=== PATIENT | female | born 1955 | race Caucasian/White ===

== ENCOUNTER → 2019-11-23 21:04 | Outpatient (CLI) | payer MEDICARE | END | disposition home or self-care (01) | LOC: D.LABREF 21:04 | PROVIDERS: ATTEND Orthopaedic Surgery | DX: M16.12 Unilateral primary osteoarthritis, left hip (principal); Z96.642 Presence of left artificial hip joint ==

== ENCOUNTER 2019-11-29 15:27 | Inpatient (IN) | payer MEDICARE ==
[~2019-11-29] VITALS: Ht 165.1 cm; Wt 97.7 kg
[2019-12-07] MEDS ORDERED: TOPROL XL25 MG PO (08:52)
[2019-12-07] MEDS ORDERED: CYMBALTA30 MG PO (08:52)
[2019-12-07] MEDS ORDERED: AMBIEN10 MG PO (08:52)
[2019-12-07] MEDS ORDERED: BUSPAR5 MG PO (08:52)
[2019-12-07] MEDS ORDERED: PROTONIX40 MG PO (08:52)
[2019-12-07] MEDS ORDERED: VASOTEC10 MG PO (08:53)
[2019-12-07] MEDS ORDERED: VITAMIN D2 PO (08:53)
[2019-12-07] MEDS ORDERED: FLUTICASONE PRO16 GM NASAL (08:54)
[2019-12-07 10:06] LABS: HEMATOCRIT 38.2 % (36.0-48.0); HEMOGLOBIN 12.7 g/dL (12-16); MCHC 33.2 g/dL (31.0-37.0); MCV 90.1 fL (80.0-100.0); MEAN PLATELET VOLUME 9.6 fL (7.4-10.4); PLATELET COUNT 415 10x3/uL (130-400); RBC 4.24 10x6/uL (4.00-5.40); RDW 13.8 % (11.5-14.5); WBC 12.2 10x3/uL (4.8-10.8)
[2019-12-07 10:10] LABS: ANION GAP 9.7 mmol/L (8-16); CALCIUM 8.8 mg/dL (8.5-10.1); CARBON DIOXIDE 30.3 mmol/L (21.0-32.0); CREATININE - SERUM 1.2 mg/dL (0.6-1.3)
[2019-12-07 10:16] LABS: INR 0.95 (0.85-1.17); PROTIME 12.7 SECONDS (11.6-15.0)
[2019-12-07 10:17] LABS: APTT 31.7 SECONDS (22.8-39.4)
[2019-12-07 11:28] LABS: BILIRUBIN NEGATIVE (NEGATIVE); EPITHELIAL CELLS 0-5 /hpf (0-5); GLUCOSE 50 mg/dL (NEGATIVE); KETONE NEGATIVE (NEGATIVE); NITRITE NEGATIVE (NEGATIVE); RED CELLS - URINE NONE SEEN /hpf (0-5); SPECIFIC GRAVITY 1.015 (1.005-1.020); WHITE CELLS - URINE 0-5 /hpf (NEGATIVE)
[2019-12-07 11:29] LABS: BACTERIA FEW /hpf (NEGATIVE)
[2019-12-07 11:53] LABS: ANISOCYTOSIS OCC; EOSINOPHILS 2 % (0-7); LYMPHOCYTES 19 % (15-50); MONOCYTES 14 % (2-11); NEUTROPHILS 65 % (40-80); PLATELET ESTIMATE INCREASED; ROULEAUX OCC
[2019-12-13] VITALS (13 sets, daily range): BP systolic 100–153; BP diastolic 53–116; Ht 165.1 cm; Wt 97.7 kg
[2019-12-13] MEDS ORDERED: CIPRO500 MG PO (06:16)
--- NOTE | 2019-12-13 06:31 | NUR ---
CALLED DR MORRISSEY TO SEE IF REPEAT UA NEEDED. STATES NO. ALSO NOTIFIED SURGERY OF LATEX ALLERGY.
--- NOTE | 2019-12-13 07:38 | NUR ---
THROUGH TRAFFIC KEPT TO A MINIMUM. HIBACLENS AND ALCOHOL USED TO WAS LEFT HIP AND ENTIRE LEG BEFORE PREPPING. STERILE GOWNED AND GLOVED BEFORE PREPPING WITH CHLORAPREP.
--- NOTE | 2019-12-13 09:45 | NUR ---
RECEIVED TO ROOM 1208 VIA BED FROM PACU. A/O X3. SKIN IS INTACT WITHOUT REDNESS EXCEPT INCISION TO LEFT HIP WHICH HAS A DRY INTACT DRESSING IN PLACE. VSS. PATIENT IS IN AFIB WITH HISTORY OF SAME. WILL GET TELEMETRY IN PLACE. SON AT BEDSIDE. ALL QUESTIONS ANSWERED. INSTRUCTED IN USE OF IS WITH RETURN DEMONSTRATION. DENIES NEEDS.
--- NOTE | 2019-12-13 15:08 | OP ---
PATIENT NAME: ANITHA BARROW MEDICAL RECORD: [id number] :55 LOCATION:D. D.1208 ADMISSION DATE:12/13/19 SURGEON: MICHAEL MORRISSEY DO DATE OF OPERATION: 12/13/2019 PROCEDURE PERFORMED: Left total hip arthroplasty. PREOPERATIVE DIAGNOSIS: Left hip osteoarthritis. POSTOPERATIVE DIAGNOSIS: Left hip osteoarthritis. INDICATIONS: Ms. Barrow is a 64-year-old female who presented to my office having tried all manner of nonoperative treatment for her hip pain, both have been hurting her, but the left one was worse than the right. She wanted something done surgically. I informed her that we could do a total hip, but she would be a risk for infection, bleeding, damage to nerves and vessels, need for further surgery, but it would help relieve her pain. She was okay with all that and was aware that she was at risk for blood clots, fracture, failure of implants, bleeding, damage to the lateral femoral cutaneous nerve, femoral nerve and she signed the consent. SURGEON: Michael Morrissey DO DESCRIPTION OF PROCEDURE: The patient was taken to the operative suite, laid in supine position, given general anesthetic and intubated. She was given 2 grams of Ancef and 80 mg of gentamicin preoperatively. She was then placed on the Sterrett table. The left lower extremity was prepped and draped in sterile fashion. Timeout was performed, everyone was in agreement with the correct site, patient and procedure. We then began by making an incision over the tensor fascia maral muscle belly, though a careful dissection was made down to it. The fascia was incised and the fascia was taken anteriorly, muscle belly posteriorly, opening up the rectus interval. The fascia was then opened. Rectus was taken medially, the tensor fascia maral laterally. I then had encountered the ascending branch of lateral femoral circumflex, tied it off and coagulated with Aquamantys and cut it. I then exposed the capsule and then opened up the capsule, put two Hohmanns around the femoral neck and made a cut. Once the femoral neck was cut, I removed the head and then she had large osteophytes off the acetabulum. These were removed as well as the labrum and the pulvinar. I then began reaming, reamed up to a 52, put in the cup and the liner and then exposed the femur. Once the femur was exposed, I used a canal finder [employer] cutter and then broached from the 4 up to 11 and trialed the -3 neck. This fit very well, had equal lengths to the right side on x-ray and then we decided to go with that. We then removed the trials and then put in the actual implant after irrigating. A #11 stem was impacted in with a -3 neck dual mobility head. This was reduced and x-rays were taken. There were no fractures in the femur. The stem was in good position and they were equal lengths seen on the left and the right off the lesser trochanter. The site was then irrigated with 10% povidone iodine and 500 mL of normal saline solution and set for 3 minutes, this was then irrigated out with a liter of normal saline. Edgar Paulino, certified surgical special education teaching assistant assisted at this point as well as Jaspreet Pierre, special education teaching assistant student. I then put in the Carlo powder, and vancomycin and tobramycin powder, and then closed the tensor fascia maral with #1 Vicryl in a [id number]-qm-rtoov and then a running locking stitch and then closed the skin with 2-0 Vicryl inverted interrupted fashion, 4-0 Monocryl ran on the skin and Prineo glue placed on the skin. She was then awakened and taken to recovery in stable condition. Blood loss was OPERATIVE REPORT [id number] ANITHA BARROW approximately 250 mL. COMPLICATIONS: None. TRANSINT:[id number] Voice Confirmation ID: [id number] DOCUMENT ID: [id number] MICHAEL MORRISSEY DO at 1508 CC: [id number] DICTATION DATE: 12/13/19827 ACCOUNTANT CERTIFIED PUBLIC: 12/13/19 1423 ADM IN [facility] [address] [facility], [facility] [id number]
--- NOTE | 2019-12-13 15:31 | NUR ---
ATE ALMOST ALL OF LUNCH. UP TO BR WITH 2 PERSON MIN-MOD ASSIST. VOIDED CLEAR YELLOW URINE WITHOUT DIFFICULTY. REPOSITIONED IN BED FOR COMFORT.
--- NOTE | 2019-12-13 19:00 | NUR ---
PATIENT RESTING IN BED WITH NO S/S OF DISTRESS. PATIENT DENIES NEEDS AT THIS TIME. BED IN LOWEST POSITION AND CALL LIGHT WITHIN REACH. ENCOURAGED THE PATIENT TO CALL IF SHE HAS NEEDS. WILL CONTINUE TO MONITOR.
--- NOTE | 2019-12-13 19:00 | NUR ---
ATE ALMOST ALL OF SUPPER. DENIES NEEDS. NO CHANGES NOTED.
--- NOTE | 2019-12-13 20:38 | NUR ---
ASSISTED PATIENT TO AND FROM RESTROOM PER HER REQUEST. ADMINISTERED MEDS PER ORDERS. PATIENT DENIES OTHER NEEDS. ENCOURAGED TO CALL. WILL CONTINUE TO MONITOR.
[2019-12-14 00:12] VITALS: BP 112/49
--- NOTE | 2019-12-14 03:14 | NUR ---
ASSISTED PATIENT TO AND FROM RESTROOM
[2019-12-14 03:31] VITALS: BP 104/54
--- NOTE | 2019-12-14 07:10 | NUR ---
PT ASSESSMENT DONE, NO S/S OF DISTRESS NOTED, HELPED PT UP TO BATHROOM, ONE PERSON ASSIST WITH WALKER, DENIES NEEDS AT THIS TIME, NO IV, BREATHING EVEN UNLABORED, A&O X3, PEDAL PULSES PALPABLE, LUNGS CTA, BED LOWEST POSITION, CALL LIGHT IN REACH, IS COMPLETED, WILL CONTINUE TO MONITOR
--- NOTE | 2019-12-14 07:12 | NUR ---
UA COLLECTED AND SENT TO LAB
[2019-12-14 07:20] LABS: BASOPHILS 0.2 % (0-2); EOSINOPHILS 0.9 % (0-7); HEMATOCRIT 31.8 % (36.0-48.0); HEMOGLOBIN 10.1 g/dL (12-16); IMMATURE GRANULOCYTES 0.2 % (0-5); LYMPHOCYTES 17.1 % (15-50); MCH 28.9 pg (26.0-34.0); MCHC 31.8 g/dL (31.0-37.0); MCV 90.9 fL (80.0-100.0); MONOCYTES 7.7 % (2-11); NEUTROPHILS 73.9 % (40-80); PLATELET COUNT 369 10x3/uL (130-400); RDW 14.4 % (11.5-14.5); WBC 11.1 10x3/uL (4.8-10.8)
[2019-12-14 07:29] LABS: ANION GAP 13.6 mmol/L (8-16); CALCIUM 8.4 mg/dL (8.5-10.1); CARBON DIOXIDE 24.8 mmol/L (21.0-32.0); CREATININE - SERUM 1.9 mg/dL (0.6-1.3); MAGNESIUM - SERUM 1.9 mg/dL (1.8-2.4); POTASSIUM - SERUM 4.4 mmol/L (3.5-5.1)
[2019-12-14 08:03] VITALS: BP 104/50
--- NOTE | 2019-12-14 09:06 | NUR ---
PT HELPED UP TO BATHROOM, ONE PERSON ASSIST, WITH WALKER, COMPLAINING OF MORE PAIN IN HIP TODAY, PLACED ICE PACK ON HIP
[2019-12-14 09:44] LABS: BILIRUBIN NEGATIVE (NEGATIVE); GLUCOSE 250 mg/dL (NEGATIVE); KETONE NEGATIVE (NEGATIVE); NITRITE NEGATIVE (NEGATIVE); RED CELLS - URINE RARE /hpf (0-5); SPECIFIC GRAVITY 1.015 (1.005-1.020); UROBILINOGEN NORMAL (NORMAL); WHITE CELLS - URINE 0-5 /hpf (NEGATIVE)
--- NOTE | 2019-12-14 09:50 | NUR ---
HELP PT BACK TO BED FROM CHAIR
--- NOTE | 2019-12-14 10:37 | NUR ---
Rehab Note- Acute Inpatient Rehab prescreen order received. The patient is [facility] insurance will require a PreAuth prior to an acute rehab stay. She is POD#1 and has a pending PT & OT Eval that will be needed for PreAuth process. Will continue to follow at this time. Thank you for this referral! Ana Lombardi RN Clinical Liaison, [facility] Rehab
--- NOTE | 2019-12-14 10:43 | MORECARE ---
CASE MANAGEMENT DISCHARGE SUMMARY PATIENT: ANITHA BARROW UNIT: [id number] ADM DATE: 12/13/19 AGE: 64 : 55 SEX: F ROOM/BED: D.1208 AUTHOR: GABE MURRY PHYSICIAN: REFERRING PHYSICIAN: MARQUIS MORRISSEY DO DATE OF SERVICE: 12/14/19 Discharge Plan Patient Name: ANITHA BARROW Facility: [facility]:[place] : 1955 Planned Disposition: Inpatient Rehab Anticipated Discharge Date: Discharge Date: Expected LOS: Initial Reviewer: [email or web address] Initial Review Date: 12/13/2019 Generated: 12/14/19 11:43 am DCP- Discharge Planning Updated by [email or web address]: Jessica Montanez on 12/14/19 9:[address] Patient Name: ANITHA BARROW Admission Status: Elective Accout number: [id number] Admission Date: 12-13-2019 : 1955 Admission Diagnosis: Attending: MARQUIS MORRISSEY Current LOS: 1 Anticipated DC Date: Planned Disposition: Inpatient Rehab Primary Insurance: [facility] MEDICARE SOLUTIONS Discharge Planning Comments: CM met with patient to complete initial dc planning assessment. CM educated patient on the CM role and verbal consent given by patient to complete assessment. Patient lives at home with his her youngest son who will be her route driver coin machines home. At discharge patient would like to go to inpatient rehab at [facility] and feels this is a safe discharge. CM discussed availability of home health, rehab services, and medical equipment. She will need a walker and BSC. She stated that someone called her and will deliver it to her at the hospital. [facility] is for Inpatient rehab and her second choice is [facility] and rehab. IMM also served and explained. She has a managed medicare and will need auth for inpatient rehab. Patient denied known discharge needs at this time. CM will continue to follow and will assist as needed with dc plans/needs. Deckhand Sponge Boat: Jessica Montanez DCPIA - Discharge Planning Initial Assessment Updated by [email or web address]: Jessica Montanez on 12/14/19 10:23 am * Is the patient Alert and Oriented? Yes * PCP DR ZURITA IN [place] * Pharmacy [facility] [address] * Preadmission Environment Home with Family * ADLs Independent * Equipment Bedside Commode Rolling Walker * List name and contact numbers for known caregivers / representatives who currently or will assist patient after discharge: LIANE VAZQUEZ [phone] * Verbal permission to speak to the caregivers and representatives has been obtained from the patient. N/A * Community resources currently utilized None * Additional services required to return to the preadmission environment? Yes * Can the patient safely return to the preadmission environment? No * Has this patient been hospitalized within the prior 30 days at any hospital? No Coverage Notice Reviewer: [id number] Nic Montanez Notice Issued Date-Time: 12/14/2019 7:30 Notice Type: Patient Choice Letter Notice Delivered To: Patient Relationship to Patient: Bus Analyst Name: Delivery Method: HAND - Hand Delivered Nasrin Days: Prior Verbal Notification: Recipient Understood Notice: Yes Recipient Signature: Yes Med Rec Note Co-signed by Attending: Coverage Notice Comment: [facility] 1)inpatient rehab [facility] 2[facility] Reviewer: [id number] Montanez Notice Issued Date-Time: 12/14/2019 7:30 Notice Type: IM Discharge Notice Notice Delivered To: Patient Relationship to Patient: Bus Analyst Name: Delivery Method: HAND - Hand Delivered Nasrin Days: Prior Verbal Notification: Recipient Understood Notice: Yes Recipient Signature: Yes Med Rec Note Co-signed by Attending: Coverage Notice Comment: Patient Name: ANITHA BARROW Page [phone] at 1043 All edits/amendments must be made on the electronic document DICTATION DATE: 12/14/19 1043 LOGGING CONTRACTOR: SHELDON 12/14/19 1043 RPT#: [id number] DC DATE: STATUS: ADM IN [facility] [address] [place] [address] END OF REPORT
--- NOTE | 2019-12-14 11:46 | NUR ---
HELPED PT UP TO BATHROOM WITH WALKER, OT SEEN PATIENT BACK TO BED, LINEN CHANGED, PT HOME GOWN PLACED ON PER REQUEST
[2019-12-14 11:55] VITALS: BP 84/54
--- NOTE | 2019-12-14 12:10 | NUR ---
DR MORRISSEY AWARE OF BP 84/54
--- NOTE | 2019-12-14 15:15 | NUR ---
OT NOTE: PT COMPLETED SUPINE TO SIT WITH CGA. PT COMPLETED EOB SITTING WITH CGA/SBA. PT COMPLETED UE AROM TOLERATED. PT COMPLETED UB HYGIENE TASKS WITH SET UP. 4-306 JIM OG COTA
--- NOTE | 2019-12-14 15:21 | NUR ---
HELPED PT TO BATHROOM, USED WALKER, HELPED BACK TO BED
[2019-12-14 16:00] VITALS: BP 100/56
--- NOTE | 2019-12-14 18:01 | NUR ---
I have reviewed this patient and I concur with the Shift Assessment completed by the Licensed Practical Nurse today this shift.
--- NOTE | 2019-12-14 19:15 | NUR ---
ALERT RESTING IN BED SON AT BED SIDE, REPORTS MILD PAIN TO LEFT HIP AREA, DENIES NEEDS AT THIS TIME, SEE SHIFT ASSESSMENT, CALL TWAN HUGHES
[2019-12-14 20:34] VITALS: BP 111/58
[2019-12-15 04:00] VITALS: BP 119/46
[2019-12-15 07:04] LABS: BASOPHILS 0.3 % (0-2); HEMATOCRIT 30.6 % (36.0-48.0); HEMOGLOBIN 9.8 g/dL (12-16); IMMATURE GRANULOCYTES 0.3 % (0-5); LYMPHOCYTES 15.5 % (15-50); MCH 29.1 pg (26.0-34.0); MCV 90.8 fL (80.0-100.0); MEAN PLATELET VOLUME 9.9 fL (7.4-10.4); MONOCYTES 8.7 % (2-11); NEUTROPHILS 74.2 % (40-80); PLATELET COUNT 298 10x3/uL (130-400); RBC 3.37 10x6/uL (4.00-5.40); RDW 14.4 % (11.5-14.5); WBC 8.7 10x3/uL (4.8-10.8)
[2019-12-15 07:30] LABS: CALCIUM 8.6 mg/dL (8.5-10.1); CARBON DIOXIDE 25.3 mmol/L (21.0-32.0); CREATININE - SERUM 1.6 mg/dL (0.6-1.3); MAGNESIUM - SERUM 2.1 mg/dL (1.8-2.4); POTASSIUM - SERUM 4.3 mmol/L (3.5-5.1)
[2019-12-15 07:31] VITALS: BP 146/66
--- NOTE | 2019-12-15 08:00 | NUR ---
PT SITTING UP IN BED. ASSISTED TO BR WITH WALKER. PT ABLE TO AMBULATE SLOWLY WITH WALKER. PT DENIES PAIN. PT PIV D/C. DRESSING ON LEFT HIP DRY AND INTACT. ASSISTED PT TO CHAIR FOR BREAKFAST. CHAIR ALARM ON, CL IN REACH. PT DENIES FURTHER NEEDS. WILL CONTINUE TO MONITOR.
[2019-12-15 11:59] VITALS: BP 131/53
--- NOTE | 2019-12-15 13:58 | NUR ---
OT NOTE: PT HAVING INCREASED DIFFICULTY TODAY WITH MOBILITY IN L LEG..REQUIRED MOD ASSIST WITH SUPINE TO SIT AND EXT TIME REQUIRED TO ALLOW PT TO PERFORM INDEP POSSIBLE. MOD ASSIST FOR SIT TO STAND; AMB TO SINK WITH VERY SHORT STEPS AND INCREASED TIME REQUIRED COMPARED TO YESTERDAY. ABLE TO STAND AT SINK AND PERFORM ORAL CARE AND GROOMING TASKS WITH GOOD STANDING BALANCE; EDUCATION ON WALKER POSITIONING WHILE PERFORMING ADLS; MIN ASSIST WITH TOILETING; UPON RETURN TO BED, PRACTICED SCOOTING UP IN BED BY BENDING R KNEE AND PULLING ON BED RAILS WITH UES. PT INITIALLY VERY CONFUSED WITH THIS, HOWEVER, AFTER MODERATE CUEING AND MULTIPLE ATTEMPTS, PT WAS ABLE TO PERFORM WITHOUT ASSIST. RECOMMEND REHAB PRIOR TO DC HOME MITCH LOTT, OTR/L [phone] MITCH LOTT, OTR/L
[2019-12-15 16:00] VITALS: BP 145/85
--- NOTE | 2019-12-15 17:20 | NUR ---
PATIENT ARRIVED VIA WHEELCHAIR. SITTING IN CHAIR WITH CHAIR ALARM ON. DINNER TRAY RECEIVED. CL IN REACH. SOME DRAINAGE TO LEFT HIP DRESSING. IN PERSONAL CLOTHES. SCD'S ATTACHED FOR LATER USE. NO FURTHER NEEDS AT THIS TIME. WCTM
--- NOTE | 2019-12-15 18:32 | NUR ---
PATIENT ASSISTED TO BATHROOM AND BACK TO BED. BED ALARM ON. ICE CREAM RECIEVED. CL IN REACH. TM
[2019-12-15 20:00] VITALS: BP 120/58
[2019-12-16] VITALS: BP 128/66
--- NOTE | 2019-12-16 00:17 | NUR ---
PT TRYING TO GET OUT OF BED ON HER OWN. HEARD MYLA ALARM GOING OFF. PT WAS STANDING UP ON SIDE OF BED. VERY CONFUSED TALKING ABOUT HER NEEDING HER MEDICATION SHE HAS ALREADY TAKEN FOR TONIGHT. ASSISTED PT BACK INTO BED AND SITUATED PT. WILL CONTINUE TO [facility]IT[facility]. FALL PRECAUTIONS IN PLACE.
--- NOTE | 2019-12-16 00:34 | NUR ---
I have reviewed this patient and I concur with the Shift Assessment completed by the Licensed Practical Nurse today this shift.
[2019-12-16 04:00] VITALS: BP 133/59
--- NOTE | 2019-12-16 06:33 | NUR ---
OT NOTE: (DOS 12/15/2019) PT COMPLETED BED MOB WITH USE OF TRAP BAR REQUIRED MIN A FOR LE MANAGEMENT. PT SAT AT EOB WITH SPV. PT COMPLETED FACE AND HAND HYGIENE AT EOB WITH SETUP. [phone] THANK YOU,DANITA LEAVITT
[2019-12-16 06:40] LABS: BASOPHILS 0.2 % (0-2); EOSINOPHILS 0.9 % (0-7); HEMATOCRIT 30.6 % (36.0-48.0); HEMOGLOBIN 9.8 g/dL (12-16); IMMATURE GRANULOCYTES 0.3 % (0-5); LYMPHOCYTES 11.1 % (15-50); MCH 28.8 pg (26.0-34.0); MEAN PLATELET VOLUME 10.1 fL (7.4-10.4); MONOCYTES 6.7 % (2-11); NEUTROPHILS 80.8 % (40-80); PLATELET COUNT 302 10x3/uL (130-400); RDW 13.9 % (11.5-14.5); WBC 9.5 10x3/uL (4.8-10.8)
[2019-12-16 06:53] LABS: CALCIUM 8.8 mg/dL (8.5-10.1); CREATININE - SERUM 1.4 mg/dL (0.6-1.3); MAGNESIUM - SERUM 1.9 mg/dL (1.8-2.4)
[2019-12-16] MEDS ORDERED: ELIQUIS2.5 MG PO (07:01)
[2019-12-16] MEDS ORDERED: oxyCODONE IR PO (07:02)
--- NOTE | 2019-12-16 08:56 | NUR ---
PATIENT ASSISTED FROM BED TO BATHROOM AND TO THE CHAIR. CHAIR ALARM ON. CL IN REACH. MEDS GIVEN PER EMAR. CO OF PAIN 6 OUT OF 10. WILL PROVIDE PAIN MED FOR RELIEF. BIMALTM
[2019-12-16 09:22] VITALS: BP 121/55
[2019-12-16 12:51] VITALS: BP 119/62
--- NOTE | 2019-12-16 13:20 | NUR ---
OT NOTE: PT ATTEMPTING TO STAND UP FROM CHAIR.. STATED THAT SHE NEEDED TO GO TO BATHROOM. PLACED WALKER IN FRONT AND SHE WAS ABLE TO PERFORM SIT TO STAND FROM CHAIR WITH EXT TIME AND MIN ASSIST; AMB TO BATHROOM BUT GAIT IS SLOW AND AND PT TAKING VERY SMALL STEPS..ENCOURAGED TO INCREASE STRIDE BUT PT UNABLE TO DO SO TODAY; TOILETING WITH SBA; ABLE TO WASH FACE AND HANDS WITH SET UP AND WASH CLOTH. BACK TO CHAIR WITH MIN ASSIST; EDUCATED ON UE STRENGTHENING EXS WHILE SITTING UP. PT REMAINS SOMEWHAT CONFUSED ( OPPOSED TO FIRST DAY AFTER SURGERY)..SHE IS A AND 0 X 2.. CONFUSED TO TIME OF DAY. RECOMMEND IP REHAB PRIOR TO DC HOME MITCH LOTT, OTR/L [phone]
--- NOTE | 2019-12-16 13:21 | NUR ---
PATIENT ASSISTED BACK TO BED. CL IN REACH. BED ALARM ON. WCTM
--- NOTE | 2019-12-16 15:25 | NUR ---
Patient remainds on the list for a ARU bed. She will need prior authorization for rehab prior to admit. [facility] is closed today due to the agustina. Currently rehab is full and will not have an open bed before Tuesday 12/19. Discussed in the IDT meeting earlier this morning. Helena Waggoner RN Clinical liaison, Rehab
[2019-12-16 20:00] VITALS: BP 112/59
--- NOTE | 2019-12-17 02:50 | NUR ---
I have reviewed this patient and I concur with the Shift Assessment completed by the Licensed Practical Nurse today this shift.
[2019-12-17 06:23] LABS: BASOPHILS 0.2 % (0-2); HEMOGLOBIN 9.1 g/dL (12-16); IMMATURE GRANULOCYTES 0.3 % (0-5); LYMPHOCYTES 21.4 % (15-50); MCH 29.1 pg (26.0-34.0); MCHC 32.5 g/dL (31.0-37.0); MCV 89.5 fL (80.0-100.0); MEAN PLATELET VOLUME 9.7 fL (7.4-10.4); MONOCYTES 6.8 % (2-11); NEUTROPHILS 68.3 % (40-80); PLATELET COUNT 255 10x3/uL (130-400); RBC 3.13 10x6/uL (4.00-5.40); RDW 13.9 % (11.5-14.5)
[2019-12-17 06:46] LABS: CALCIUM 8.5 mg/dL (8.5-10.1); CARBON DIOXIDE 27.4 mmol/L (21.0-32.0); CREATININE - SERUM 1.4 mg/dL (0.6-1.3); MAGNESIUM - SERUM 1.9 mg/dL (1.8-2.4); PHOSPHOROUS 3.5 mg/dL (2.5-4.9); POTASSIUM - SERUM 3.4 mmol/L (3.5-5.1)
[2019-12-17 13:30] VITALS: BP 133/72
[2019-12-17 16:50] VITALS: BP 91/54
--- NOTE | 2019-12-17 18:23 | NUR ---
REMAINS WITHOUT NEEDS,WITHOUT CHANGE. CONT PLAN OF CARE
[2019-12-17 20:00] VITALS: BP 112/73
[2019-12-18] VITALS: BP 141/78
[2019-12-18 04:00] VITALS: BP 117/54
[2019-12-18 06:49] LABS: BASOPHILS 0.2 % (0-2); EOSINOPHILS 3.6 % (0-7); HEMATOCRIT 27.5 % (36.0-48.0); HEMOGLOBIN 8.8 g/dL (12-16); IMMATURE GRANULOCYTES 0.2 % (0-5); LYMPHOCYTES 24.7 % (15-50); MCH 28.9 pg (26.0-34.0); MCV 90.2 fL (80.0-100.0); MEAN PLATELET VOLUME 9.8 fL (7.4-10.4); MONOCYTES 9.1 % (2-11); NEUTROPHILS 62.2 % (40-80); RBC 3.05 10x6/uL (4.00-5.40); RDW 13.9 % (11.5-14.5); WBC 5.6 10x3/uL (4.8-10.8)
[2019-12-18 06:50] LABS: PLATELET COUNT 314 10x3/uL (130-400)
[2019-12-18 06:59] LABS: ANION GAP 8.2 mmol/L (8-16); CALCIUM 8.4 mg/dL (8.5-10.1); CARBON DIOXIDE 28.8 mmol/L (21.0-32.0); CREATININE - SERUM 1.4 mg/dL (0.6-1.3); MAGNESIUM - SERUM 1.8 mg/dL (1.8-2.4)
--- NOTE | 2019-12-18 07:15 | NUR ---
BEDSIDE SHIFT REPORT RECEIVED. ASSESSMENT COMPLETE, BREATHING EVEN UNLABROED, SON AT BEDSIDE, HELP PT TO BATHROOM USING WALKER, BACK TO BED, CALL LIGHT IN REACH, UP TO CHAIR. IV TO LFA PATENT. DENIES PAIN, WILL CONTINUE TO MONITOR
[2019-12-18 09:02] VITALS: BP 105/64
[2019-12-18 09:58] LABS: BILIRUBIN NEGATIVE (NEGATIVE); GLUCOSE NEGATIVE (NEGATIVE); KETONE NEGATIVE (NEGATIVE); NITRITE NEGATIVE (NEGATIVE); SPECIFIC GRAVITY 1.015 (1.005-1.020); UROBILINOGEN NORMAL (NORMAL)
--- NOTE | 2019-12-18 12:15 | NUR ---
ICE APPLIED TO LEFT HIP TO HELP REDUCE SWEELING AND PAIN.
[2019-12-18 12:41] VITALS: BP 123/73
[2019-12-18 17:09] VITALS: BP 130/68
[2019-12-18 21:20] VITALS: BP 137/73
--- NOTE | 2019-12-19 01:50 | NUR ---
ALERT AND ORENTED X4 UP AMBULATES WITH WALKER AND ASSIST. ON ROOM AIR. IV TO LEFT FOREARM WITH NS AT 75ML/HR. SCD'S SET UP SHE WILL USE AT TIMES. LEFT HIP WITH DRESSING INTACT.
[2019-12-19 04:00] VITALS: BP 174/78
--- NOTE | 2019-12-19 07:20 | NUR ---
RECEIVED REPORT, A&O X3, DENIES NEEDS, CALL LIGHT IN REACH, BED LOWEST POSITION, REFUSED SCD'S AT THIS TIME STATES SHE WILL PUT THEM ON LATER, WILL CONTINUE POC
[2019-12-19 09:12] VITALS: BP 141/62
[2019-12-19 09:46] LABS: BASOPHILS 0.5 % (0-2); HEMATOCRIT 27.7 % (36.0-48.0); HEMOGLOBIN 8.8 g/dL (12-16); LYMPHOCYTES 21.4 % (15-50); MCH 28.9 pg (26.0-34.0); MCHC 31.8 g/dL (31.0-37.0); MCV 90.8 fL (80.0-100.0); MEAN PLATELET VOLUME 10.2 fL (7.4-10.4); MONOCYTES 8.2 % (2-11); NEUTROPHILS 63.9 % (40-80); PLATELET COUNT 320 10x3/uL (130-400); RBC 3.05 10x6/uL (4.00-5.40); RDW 13.9 % (11.5-14.5)
[2019-12-19 09:47] LABS: ALBUMIN 2.7 g/dL (3.4-5.0); ANION GAP 14.7 mmol/L (8-16); BILIRUBIN - TOTAL 0.36 mg/dL (0.2-1.3); CALCIUM 8.1 mg/dL (8.5-10.1); CARBON DIOXIDE 22.4 mmol/L (21.0-32.0); CREATININE - SERUM 1.2 mg/dL (0.6-1.3); POTASSIUM - SERUM 4.1 mmol/L (3.5-5.1); PROTEIN - SERUM 5.6 g/dL (6.4-8.2)
[2019-12-19 13:59] VITALS: BP 133/67
[2019-12-19 18:45] VITALS: BP 150/77
--- NOTE | 2019-12-19 19:36 | NUR ---
I have reviewed this patient and I concur with the Shift Assessment completed by the Licensed Practical Nurse today this shift.
[2019-12-19 20:00] VITALS: BP 158/83
--- NOTE | 2019-12-19 20:00 | NUR ---
ALERT RESTING IN BED DENIES PAIN OR NEEDS AT THSI TIME, SEE SHIFT ASSESSMENT, CALL LIGHT IN REACH, FALL RECAUTIONS IN PLACE
[2019-12-20 04:00] VITALS: BP 162/78
[2019-12-20 05:28] LABS: BASOPHILS 0.4 % (0-2); EOSINOPHILS 3.8 % (0-7); HEMATOCRIT 29.5 % (36.0-48.0); HEMOGLOBIN 9.5 g/dL (12-16); IMMATURE GRANULOCYTES 0.4 % (0-5); LYMPHOCYTES 18.9 % (15-50); MCH 29.1 pg (26.0-34.0); MCHC 32.2 g/dL (31.0-37.0); MCV 90.5 fL (80.0-100.0); MEAN PLATELET VOLUME 9.4 fL (7.4-10.4); MONOCYTES 5.7 % (2-11); NEUTROPHILS 70.8 % (40-80); RBC 3.26 10x6/uL (4.00-5.40); RDW 13.7 % (11.5-14.5)
[2019-12-20 05:53] LABS: PLATELET COUNT 409 10x3/uL (130-400)
[2019-12-20 06:02] LABS: ALBUMIN 2.9 g/dL (3.4-5.0); ANION GAP 10.6 mmol/L (8-16); BILIRUBIN - TOTAL 0.43 mg/dL (0.2-1.3); CALCIUM 8.4 mg/dL (8.5-10.1); CARBON DIOXIDE 28.4 mmol/L (21.0-32.0); CREATININE - SERUM 1.3 mg/dL (0.6-1.3); PHOSPHOROUS 3.5 mg/dL (2.5-4.9); PROTEIN - SERUM 6.5 g/dL (6.4-8.2)
[2019-12-20 09:01] VITALS: BP 146/85
[2019-12-20] MEDS ORDERED: NICODERM CQ1 EAC3 TOPICAL (09:12)
--- NOTE | 2019-12-20 09:18 | MORECARE ---
CASE MANAGEMENT DISCHARGE SUMMARY PATIENT: ANITHA BARROW UNIT: [id number] ADM DATE: 12/13/19 AGE: 64 : 55 SEX: F ROOM/BED: D.2228 AUTHOR: GABE MURRY PHYSICIAN: REFERRING PHYSICIAN: MARQUIS MORRISSEY DO DATE OF SERVICE: 12/20/19 Discharge Plan Patient Name: ANITHA BARROW Facility: [facility]:[place] : 1955 Planned Disposition: Inpatient Rehab Anticipated Discharge Date: Discharge Date: Expected LOS: Initial Reviewer: [id number] Initial Review Date: 12/13/2019 Generated: 12/20/19 10:17 am DCP- Discharge Planning Updated by [email or web address]: Jessica Montanez on 12/14/19 9:[address] Patient Name: ANITHA BARROW Admission Status: Elective Accout number: [id number] Admission Date: 12-13-2019 : 1955 Admission Diagnosis: Attending: MARQUIS MORRISSEY Current LOS: 1 Anticipated DC Date: Planned Disposition: Inpatient Rehab Primary Insurance: [facility] MEDICARE SOLUTIONS Discharge Planning Comments: CM met with patient to complete initial dc planning assessment. CM educated patient on the CM role and verbal consent given by patient to complete assessment. Patient lives at home with his her youngest son who will be her highway truck driver home. At discharge patient would like to go to inpatient rehab at [facility] and feels this is a safe discharge. CM discussed availability of home health, rehab services, and medical equipment. She will need a walker and BSC. She stated that someone called her and will deliver it to her at the hospital. [facility] is for Inpatient rehab and her second choice is [facility] and rehab. IMM also served and explained. She has a managed medicare and will need auth for inpatient rehab. Patient denied known discharge needs at this time. CM will continue to follow and will assist as needed with dc plans/needs. Apple Picking Supervisor: Jessica Montanez DCPIA - Discharge Planning Initial Assessment Updated by [id number]: Jessica Montanez on 12/14/19 10:23 am * Is the patient Alert and Oriented? Yes * PCP DR UZRITA IN [place] * Pharmacy [facility] [address] * Preadmission Environment Home with Family * ADLs Independent * Equipment Bedside Commode Rolling Walker * List name and contact numbers for known caregivers / representatives who currently or will assist patient after discharge: LIANE VAZQUEZ [phone] * Verbal permission to speak to the caregivers and representatives has been obtained from the patient. N/A * Community resources currently utilized None * Additional services required to return to the preadmission environment? Yes * Can the patient safely return to the preadmission environment? No * Has this patient been hospitalized within the prior 30 days at any hospital? No External Providers External Provider: [facility] Next Contact Date: Service Request Date: Service Type: Resolution: Reviewer: Comments: Coverage Notice Reviewer: [email or web address] Nic Montanez Notice Issued Date-Time: 12/14/2019 7:30 Notice Type: Patient Choice Letter Notice Delivered To: Patient Relationship to Patient: Trustee Of Estate Name: Delivery Method: HAND - Hand Delivered Nasrin Days: Prior Verbal Notification: Recipient Understood Notice: Yes Recipient Signature: Yes Med Rec Note Co-signed by Attending: Coverage Notice Comment: [facility] 1)inpatient rehab [facility] 2)[facility] Reviewer: [id number] Montanez Notice Issued Date-Time: 12/14/2019 7:30 Notice Type: IM Discharge Notice Notice Delivered To: Patient Relationship to Patient: Trustee Of Estate Name: Delivery Method: HAND - Hand Delivered Nasrin Days: Prior Verbal Notification: Recipient Understood Notice: Yes Recipient Signature: Yes Med Rec Note Co-signed by Attending: Coverage Notice Comment: Reviewer: [id number] Reza Notice Issued Date-Time: 12/20/2019 9:11 Notice Type: IM Discharge Notice Notice Delivered To: Patient Relationship to Patient: Trustee Of Estate Name: Delivery Method: HAND - Hand Delivered Nasrin Days: Prior Verbal Notification: Recipient Understood Notice: Yes Recipient Signature: Yes Med Rec Note Co-signed by Attending: Coverage Notice Comment: Reviewer: [id number] Reza Notice Issued Date-Time: 12/20/2019 9:11 Notice Type: Patient Choice Letter Notice Delivered To: Patient Relationship to Patient: Trustee Of Estate Name: Delivery Method: HAND - Hand Delivered Nasrin Days: Prior Verbal Notification: Recipient Understood Notice: Yes Recipient Signature: Yes Med Rec Note Co-signed by Attending: Coverage Notice Comment: SAMEERA PRETTY export: 12/14/19 9:43 am Patient Name: ANITHA BARROW Page [phone] at 0918 All edits/amendments must be made on the electronic document DICTATION DATE: 12/20/19916 STAPLER MACHINE: SHELDON 12/20/19916 RPT#: [id number] DC DATE: STATUS: ADM IN [facility] [address] [place] [address] END OF REPORT
--- NOTE | 2019-12-20 10:08 | MORECARE ---
CASE MANAGEMENT DISCHARGE SUMMARY PATIENT: ANITHA BARROW UNIT: [id number] ADM DATE: 12/13/19 AGE: 64 : 55 SEX: F ROOM/BED: D.2228 AUTHOR: GABE MURRY PHYSICIAN: REFERRING PHYSICIAN: MARQUIS MORRISSEY DO DATE OF SERVICE: 12/20/19 Discharge Plan Patient Name: ANITHA BARROW Facility: [facility]:[place] : 1955 Planned Disposition: Inpatient Rehab Anticipated Discharge Date: Discharge Date: Expected LOS: Initial Reviewer: [id number] Initial Review Date: 12/13/2019 Generated: 12/20/19 11:08 am DCP- Discharge Planning Updated by [email or web address]: Jessica Montanez on 12/14/19 9:[address] Patient Name: ANITHA BARROW Admission Status: Elective Accout number: [id number] Admission Date: 12-13-2019 : 1955 Admission Diagnosis: Attending: MARQUIS MORRISSEY Current LOS: 1 Anticipated DC Date: Planned Disposition: Inpatient Rehab Primary Insurance: [facility] MEDICARE SOLUTIONS Discharge Planning Comments: CM met with patient to complete initial dc planning assessment. CM educated patient on the CM role and verbal consent given by patient to complete assessment. Patient lives at home with his her youngest son who will be her telephone directory distributor driver home. At discharge patient would like to go to inpatient rehab at [facility] and feels this is a safe discharge. CM discussed availability of home health, rehab services, and medical equipment. She will need a walker and BSC. She stated that someone called her and will deliver it to her at the hospital. [facility] is for Inpatient rehab and her second choice is [facility] and rehab. IMM also served and explained. She has a managed medicare and will need auth for inpatient rehab. Patient denied known discharge needs at this time. CM will continue to follow and will assist as needed with dc plans/needs. Special Services Coordinator: Jessica Montanez DCPIA - Discharge Planning Initial Assessment Updated by [email or web address]: Jessica Montanez on 12/14/19 10:23 am * Is the patient Alert and Oriented? Yes * PCP DR ZURITA IN [place] * Pharmacy [facility] [address] * Preadmission Environment Home with Family * ADLs Independent * Equipment Bedside Commode Rolling Walker * List name and contact numbers for known caregivers / representatives who currently or will assist patient after discharge: LIANE VAZQUEZ [phone] * Verbal permission to speak to the caregivers and representatives has been obtained from the patient. N/A * Community resources currently utilized None * Additional services required to return to the preadmission environment? Yes * Can the patient safely return to the preadmission environment? No * Has this patient been hospitalized within the prior 30 days at any hospital? No External Providers External Provider: [facility] Next Contact Date: Service Request Date: Service Type: Resolution: Reviewer: Comments: Coverage Notice Reviewer: [id number] Reza Notice Issued Date-Time: 12/20/2019 9:11 Notice Type: Patient Choice Letter Notice Delivered To: Patient Relationship to Patient: Aircraft Structural Repairer Name: Delivery Method: HAND - Hand Delivered Nasrin Days: Prior Verbal Notification: Recipient Understood Notice: Yes Recipient Signature: Yes Med Rec Note Co-signed by Attending: Coverage Notice Comment: SAMEERA BHATIA Reviewer: [id number] Montanez Notice Issued Date-Time: 12/14/2019 7:30 Notice Type: Patient Choice Letter Notice Delivered To: Patient Relationship to Patient: Aircraft Structural Repairer Name: Delivery Method: HAND - Hand Delivered Nasrin Days: Prior Verbal Notification: Recipient Understood Notice: Yes Recipient Signature: Yes Med Rec Note Co-signed by Attending: Coverage Notice Comment: [facility] 1)inpatient rehab [facility] 2)[facility] Reviewer: [id number] Reza Notice Issued Date-Time: 12/20/2019 9:11 Notice Type: IM Discharge Notice Notice Delivered To: Patient Relationship to Patient: Aircraft Structural Repairer Name: Delivery Method: HAND - Hand Delivered Nasrin Days: Prior Verbal Notification: Recipient Understood Notice: Yes Recipient Signature: Yes Med Rec Note Co-signed by Attending: Coverage Notice Comment: Reviewer: [id number] Montanez Notice Issued Date-Time: 12/14/2019 7:30 Notice Type: IM Discharge Notice Notice Delivered To: Patient Relationship to Patient: Aircraft Structural Repairer Name: Delivery Method: HAND - Hand Delivered Nasrin Days: Prior Verbal Notification: Recipient Understood Notice: Yes Recipient Signature: Yes Med Rec Note Co-signed by Attending: Coverage Notice Comment: Last DP export: 12/20/19 8:18 am Patient Name: ANITHA BARROW Page [id number] at 1008 All edits/amendments must be made on the electronic document DICTATION DATE: 12/20/19 1008 HABITAT CONSERVATION PLANNER: SHELDON 12/20/19 1008 RPT#: [id number] DC DATE: STATUS: ADM IN [facility] [address] [place] [address] END OF REPORT
[2019-12-20] MEDS ORDERED: KEFLEX500 MG PO (11:27)
--- NOTE | 2019-12-20 11:43 | NUR ---
OT NOTE: PT PERFORMED WELL TODAY; AMB WITH RW X 100 FT WITH SBA; TOILETING WITH SBA; SINK HYGIENE WITH WALKER AND SBA. MITCH LOTT, OTR/L [phone]
--- NOTE | 2019-12-21 17:13 | MORECARE ---
CASE MANAGEMENT DISCHARGE SUMMARY PATIENT: ANITHA BARROW UNIT: [id number] ADM DATE: 12/13/19 AGE: 64 : 55 SEX: F ROOM/BED: D.2228 AUTHOR: GABE MURRY PHYSICIAN: REFERRING PHYSICIAN: MARQUIS MORRISSEY DO DATE OF SERVICE: 12/21/19 Discharge Plan Patient Name: ANITHA BARROW Facility: [facility]:[place] : 1955 Planned Disposition: Inpatient Rehab Anticipated Discharge Date: Discharge Date: 12/20/2019 Expected LOS: Initial Reviewer: [email or web address] Initial Review Date: 12/13/2019 Generated: 12/21/19 6:13 pm DCP- Discharge Planning Updated by [email or web address]: Jessica Montanez on 12/14/19 9:[address] Patient Name: ANITHA BARROW Admission Status: Elective Accout number: [id number] Admission Date: 12-13-2019 : 1955 Admission Diagnosis: Attending: MARQUIS MORRISSEY Current LOS: 1 Anticipated DC Date: Planned Disposition: Inpatient Rehab Primary Insurance: [facility] MEDICARE SOLUTIONS Discharge Planning Comments: CM met with patient to complete initial dc planning assessment. CM educated patient on the CM role and verbal consent given by patient to complete assessment. Patient lives at home with his her youngest son who will be her racing car driver home. At discharge patient would like to go to inpatient rehab at [facility] and feels this is a safe discharge. CM discussed availability of home health, rehab services, and medical equipment. She will need a walker and BSC. She stated that someone called her and will deliver it to her at the hospital. [facility] is for Inpatient rehab and her second choice is [facility] and rehab. IMM also served and explained. She has a managed medicare and will need auth for inpatient rehab. Patient denied known discharge needs at this time. CM will continue to follow and will assist as needed with dc plans/needs. Carriage Feeder: Jessica Montanez DCPIA - Discharge Planning Initial Assessment Updated by [email or web address]: Jessica Montanez on 12/14/19 10:23 am * Is the patient Alert and Oriented? Yes * PCP DR ZURITA IN [place] * Pharmacy [facility] [address] * Preadmission Environment Home with Family * ADLs Independent * Equipment Bedside Commode Rolling Walker * List name and contact numbers for known caregivers / representatives who currently or will assist patient after discharge: LIANE VAZQUEZ [phone] * Verbal permission to speak to the caregivers and representatives has been obtained from the patient. N/A * Community resources currently utilized None * Additional services required to return to the preadmission environment? Yes * Can the patient safely return to the preadmission environment? No * Has this patient been hospitalized within the prior 30 days at any hospital? No Coverage Notice Reviewer: [id number] Nic Montanez Notice Issued Date-Time: 12/14/2019 7:30 Notice Type: Patient Choice Letter Notice Delivered To: Patient Relationship to Patient: Guardian Family Member Name: Delivery Method: HAND - Hand Delivered Nasrin Days: Prior Verbal Notification: Recipient Understood Notice: Yes Recipient Signature: Yes Med Rec Note Co-signed by Attending: Coverage Notice Comment: [facility] 1)inpatient rehab [facility] 2[facility] Reviewer: [id number] Montanez Notice Issued Date-Time: 12/14/2019 7:30 Notice Type: IM Discharge Notice Notice Delivered To: Patient Relationship to Patient: Guardian Family Member Name: Delivery Method: HAND - Hand Delivered Nasrin Days: Prior Verbal Notification: Recipient Understood Notice: Yes Recipient Signature: Yes Med Rec Note Co-signed by Attending: Coverage Notice Comment: Reviewer: [id number] Reza Notice Issued Date-Time: 12/20/2019 9:11 Notice Type: IM Discharge Notice Notice Delivered To: Patient Relationship to Patient: Guardian Family Member Name: Delivery Method: HAND - Hand Delivered Nasrin Days: Prior Verbal Notification: Recipient Understood Notice: Yes Recipient Signature: Yes Med Rec Note Co-signed by Attending: Coverage Notice Comment: Reviewer: [id number] Reza Notice Issued Date-Time: 12/20/2019 9:11 Notice Type: Patient Choice Letter Notice Delivered To: Patient Relationship to Patient: Guardian Family Member Name: Delivery Method: HAND - Hand Delivered Nasrin Days: Prior Verbal Notification: Recipient Understood Notice: Yes Recipient Signature: Yes Med Rec Note Co-signed by Attending: Coverage Notice Comment: SAMEERA Max DP export: 12/20/19 9:08 am Patient Name: ANITHA BARROW Page [id number] at 1713 All edits/amendments must be made on the electronic document DICTATION DATE: 12/21/191712 MARKETING SPECIALIST: SHELDON 12/21/191712 RPT#: [id number] DC DATE:12/20/19 STATUS: DIS IN [facility] [address] [place] [address] END OF REPORT
== END 2019-12-20 12:04 | disposition home or self-care (01) | DRG 470 ==
LOC: D.SDCHOLD 12-07 10:00 → D.M3 12-13 05:22 → D.SDCHOLD 12-13 07:00 → D.M3 12-13 09:22 → D.SDCHOLD 12-13 10:00 → D.MS 12-15 16:46 → D.SDCHOLD 12-19 15:06 → D.MS 12-20 12:04
PROVIDERS: Family Medicine; Family Medicine Adult Medicine; ADMIT Orthopaedic Surgery; ATTEND Orthopaedic Surgery
PROC: 0SRB0JZ Replacement of Left Hip Joint with Synthetic Substitute, Open Approach (ICD-10-PCS; principal; 2019-12-13 07:00)
DX: M16.12 Unilateral primary osteoarthritis, left hip (principal); I48.20 Chronic atrial fibrillation, unspecified; N17.9 Acute kidney failure, unspecified; N39.0 Urinary tract infection, site not specified; I10 Essential (primary) hypertension; E03.9 Hypothyroidism, unspecified; K21.9 Gastro-esophageal reflux disease without esophagitis; F41.8 Other specified anxiety disorders; M81.0 Age-related osteoporosis without current pathological fracture